=== PATIENT | male | born 1965 | race Caucasian/White ===

== ENCOUNTER 2018-02-10 01:16 | Emergency (ER) | payer SELFPAY ==
[2018-02-10] MEDS ORDERED: CHLORHEXIDINE GLUCONATE 4 % 15 ML UD TOP ONE (01:28)
[2018-02-10] MEDS ORDERED: LIDOCAINE 1% 10 ML VIAL INJ ONE (01:28)
[2018-02-10 01:36] VITALS: BP 132/92; TEMP 98.7; O2SAT 99
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
== END 2018-02-10 01:57 | disposition home or self-care (01) ==
LOC: ER 01:16
DX: S61.213A Laceration without foreign body of left middle finger without damage to nail, initial encounter (principal); W25.XXXA Contact with sharp glass, initial encounter; Y92.9 Unspecified place or not applicable